=== PATIENT | female | born 1955 | race Caucasian/White ===

== ENCOUNTER → 2017-03-07 14:32 | Outpatient (CLI) | payer BC | END | disposition home or self-care (01) | LOC: D.CT 14:32 | DX: K21.9 Gastro-esophageal reflux disease without esophagitis (principal); R13.10 Dysphagia, unspecified ==

== ENCOUNTER → 2017-03-20 18:15 | Outpatient (CLI) | payer BC | END | disposition home or self-care (01) | LOC: D.MAMMO 11:45 | DX: Z12.31 Encounter for screening mammogram for malignant neoplasm of breast (principal) ==

== ENCOUNTER → 2017-09-20 13:17 | Outpatient (CLI) | payer BC | END | disposition home or self-care (01) | LOC: D.CT 13:17 | DX: R19.09 Other intra-abdominal and pelvic swelling, mass and lump (principal) ==